=== PATIENT | male | born 1995 | race African-American/Black ===

== ENCOUNTER 2018-01-20 10:26 | Emergency (ER) | payer SELFPAY ==
--- NOTE | 2018-01-20 11:01 | ER Document Report ---
ED Medical Screen (RME) - General Chief Complaint: Chest Pain Stated Complaint: CHEST PAIN Time Seen by Provider: 01/20/18 10:53 Notes: 22-year-old male patient reports onset just before checking into work at [employer] of a tightness in his left chest with pain. Nothing makes the pain worse. He states this is a recurring problem, but the last episode was between 1 and 2 years ago and at that time was related to a panic attack after a head injury. He states now he is concerned because he is not having a panic attack, and is not been anxious. He has felt nauseous. He is tender to palpate the left anterior lateral chest wall, but states that is not the same pain that he is concerned about in his chest. I have greeted and performed a rapid initial assessment of this patient. A comprehensive ED assessment and evaluation of the patient, analysis of test results and completion of the medical decision making process will be conducted by additional ED providers. TRAVEL OUTSIDE OF THE [place] IN LAST 30 DAYS: No - Related Data Allergies/Adverse Reactions: No Known Allergies Allergy (Unverified 02/19/11 00:35) Past Medical History Pulmonary Medical History: Reports: Hx Asthma - Immunizations Immunizations up to date: Yes Hx Diphtheria, Pertussis, Tetanus Vaccination: Yes Physical Exam - Vital signs Vitals: Temp Pulse Resp BP Pulse Ox 97.3 F 68 16 142/64 H 96 01/20/18 10:31 01/20/18 10:31 01/20/18 10:31 01/20/18 10:31 01/20/18 10:31 Course - Vital Signs Vital signs: Temp Pulse Resp BP Pulse Ox 97.3 F 68 16 142/64 H 96 01/20/18 10:31 01/20/18 10:31 01/20/18 10:31 01/20/18 10:31 01/20/18 10:31 Doctor's Discharge - Discharge Referrals: HANSEL GARCIA, [Primary Care Provider] - Follow up as needed
[2018-01-20 11:33] LABS: ABSOLUTE EOSINOPHILS # (AUTO) 0.4 10^3/uL (0.0-0.6); ABSOLUTE LYMPHOCYTES (AUTO) 2.2 10^3/uL (0.5-4.7); ABSOLUTE MONOCYTES (AUTO) 0.4 10^3/uL (0.1-1.4); ABSOLUTE NEUT (AUTO) 2.9 10^3/uL (1.7-8.2); BASOPHILS % (AUTO) 0.8 % (0-2); EOSINOPHILS % (AUTO) 7.1 % (0-6); HEMOGLOBIN 16.4 g/dL (13.5-17.0); LYMPHOCYTES % (AUTO) 36.3 % (13-45); MEAN CORPUSCULAR HEMOGLOBIN 30.1 pg (27.0-33.4); MEAN CORPUSCULAR HGB CONC 34.2 g/dL (32.0-36.0); MEAN CORPUSCULAR VOLUME 88 fl (80-97); MONOCYTES % (AUTO) 7.5 % (3-13); PLATELET COUNT 242 10^3/uL (150-450); RED BLOOD COUNT 5.46 10^6/uL (4.35-5.55); RED CELL DISTRIBUTION WIDTH 12.4 % (11.5-14.0); SEGMENTED NEUTROPHILS % (AUTO) 48.3 % (42-78); TOTAL CELLS COUNTED % (AUTO) 100 %
[2018-01-20 11:54] LABS: ALANINE AMINOTRANSFERASE 69 U/L (21-72); ALBUMIN 3.9 g/dL (3.5-5.0); ALKALINE PHOSPHATASE 64 U/L (38-126); ANION GAP 9 (5-19); ASPARTATE AMINO TRANSFERASE 54 U/L (17-59); BILIRUBIN,DIRECT 0.1 mg/dL (0.0-0.4); BILIRUBIN,TOTAL 0.6 mg/dL (0.2-1.3); BLOOD UREA NITROGEN 14 mg/dL (7-20); CALCIUM 9.8 mg/dL (8.4-10.2); CARBON DIOXIDE 27 mmol/L (22-30); CHLORIDE 106 mmol/L (98-107); CREATINE KINASE 502 U/L (55-170); GLUCOSE 101 mg/dL (75-110); POTASSIUM 4.3 mmol/L (3.6-5.0); SODIUM 142.4 mmol/L (137-145); TOTAL PROTEIN 6.7 g/dL (6.3-8.2)
--- NOTE | 2018-01-20 12:23 | RADIOLOGY REPORT (SQ) ---
EXAM DESCRIPTION: CHEST 2 VIEWS COMPLETED DATE/TIME: 01/20/2018 11:46 am REASON FOR STUDY: Left-sided chest pressure and chest pain COMPARISON: None. EXAM PARAMETERS: NUMBER OF VIEWS: two views TECHNIQUE: Digital Frontal and Lateral radiographic views of the chest acquired. RADIATION DOSE: NA LIMITATIONS: none FINDINGS: LUNGS AND PLEURA: No opacities, masses or pneumothorax. No pleural effusion. MEDIASTINUM AND HILAR STRUCTURES: No masses or contour abnormalities. HEART AND VASCULAR STRUCTURES: Heart normal size. No evidence for failure. BONES: No acute findings. HARDWARE: None in the chest. OTHER: No other significant finding. IMPRESSION: 1. NO ACUTE RADIOGRAPHIC FINDING IN THE CHEST. TECHNICAL DOCUMENTATION: JOB ID: [id number] [employer]- All Rights Reserved Reading location - IP/workstation name: [email or web address]
--- NOTE | 2018-01-20 12:52 | EKG REPORT ---
SEVERITY:- NORMAL ECG - SINUS RHYTHM : Confirmed by: Papito Ramey MD 20-Jan-2018 12:51:09
--- NOTE | 2018-01-20 14:07 | ER Document Report ---
ED General - General Chief Complaint: Chest Pain Stated Complaint: CHEST PAIN Time Seen by Provider: 01/20/18 10:53 Mode of Arrival: Ambulatory Information source: Patient TRAVEL OUTSIDE OF THE [place] IN LAST 30 DAYS: No - HPI Patient complains to provider of: chest pain Onset: Other - 2-year-old male patient reports onset just before checking into work at [employer] of a tightness in his left chest with pain. Nothing makes the pain worse. He states this is a recurring problem, but the last episode was between 1 and 2 years ago and at that time was related to a panic attack after a head injury. He states now he is concerned because he is not having a panic attack, and is not been anxious. He has felt nauseous. He is tender to palpate the left anterior lateral chest wall, but states that is not the same pain that he is concerned about in his chest. No fevers no chills no cough no trauma to the chest no radiation no movement of the right side of the chest no emesis no diaphoresis no lightheadedness associated with the symptoms - Related Data Allergies/Adverse Reactions: No Known Allergies Allergy (Unverified 02/19/11 00:35) Past Medical History - General Information source: Patient - Social History Smoking Status: Current Some Day Smoker Smoking Education Provided: Yes Frequency of alcohol use: Occasional Drug Abuse: Marijuana Family History: Reviewed & Not Pertinent Patient has suicidal ideation: No Patient has homicidal ideation: No Pulmonary Medical History: Reports: Hx Asthma Renal/ Medical History: Denies: Hx Peritoneal Dialysis Past Surgical History: Reports: Hx Tonsillectomy - Immunizations Immunizations up to date: Yes Hx Diphtheria, Pertussis, Tetanus Vaccination: Yes Review of Systems - Review of Systems -: Yes All other systems reviewed and negative Physical Exam - Vital signs Vitals: Temp Pulse Resp BP Pulse Ox 97.3 F 68 16 142/64 H 96 01/20/18 10:31 01/20/18 10:31 01/20/18 10:31 01/20/18 10:31 01/20/18 10:31 - General General appearance: Appears well, Alert - HEENT Head: Normocephalic, Atraumatic Eyes: Normal Pupils: PERRL - Respiratory Respiratory status: No respiratory distress Chest status: Nontender Breath sounds: Normal Chest palpation: Normal - Cardiovascular Rhythm: Regular Heart sounds: Normal auscultation Murmur: No - Abdominal Inspection: Normal Distension: No distension Bowel sounds: Normal Tenderness: Nontender Organomegaly: No organomegaly - Back Back: Normal, Nontender - Extremities General upper extremity: Normal inspection, Nontender, Normal color, Normal ROM , Normal temperature General lower extremity: Normal inspection, Nontender, Normal color, Normal ROM , Normal temperature, Normal weight bearing. No: Ariana's sign - Neurological Neuro grossly intact: Yes Cognition: Normal Orientation: AAOx4 Caio Coma Scale Eye Opening: Spontaneous [place] Coma Scale Verbal: Oriented [place] Coma Scale Motor: Obeys Commands [place] Coma Scale Total: 15 Speech: Normal Motor strength normal: LUE, RUE, LLE, RLE Sensory: Normal - Psychological Associated symptoms: Normal affect, Normal mood Course - Re-evaluation Re-evalutation: He is a well-appearing 22-year-old man that presents from triage with labs already ordered. No significant family history of cardiac disease, atypical story, 22 years old, EKG is slightly abnormal but nondiagnostic, negative troponin. This patient's heart score is a 1. During evaluation in the emergency department this patient was placed on monitor was well-appearing throughout his time in the emergency department had no other episodes to suggest more serious or positive a chest x-ray which was also nondiagnostic. Did speak to this patient about further investigation including monitoring or other checks including a Holter monitor. He will follow-up with primary care physician or return in case of any worsening symptoms now please represent more serious underlying cause of his chest pain such as but not limited to [place]. He is PERC negative, as such did not pursue any further workup related to pulmonary embolus. No risk factors to suggest more serious issue such as dissection. Lungs are well-inflated no obvious pneumothorax. Patient was discharged with return precautions. - Vital Signs Vital signs: Temp Pulse Resp BP Pulse Ox 97.3 F 68 14 135/121 H 96 01/20/18 10:31 01/20/18 10:31 01/20/18 13:01 01/20/18 13:01 01/20/18 13:01 - Laboratory Result Diagrams: 01/20/18 11:08 01/20/18 11:08 Laboratory results interpreted by me: 01/20/18 01/20/18 11:08 11:08 Eosinophils % 7.1 H Creatine Kinase 502 H Discharge - Discharge Clinical Impression: Chest pain Qualifiers: Chest pain type: unspecified Qualified Code(s): R07.9 - Chest pain, unspecified Condition: Good Disposition: HOME, SELF-CARE Instructions: Chest Wall Pain ([facility]), Chest Pain of Unclear Cause ([facility]) Additional Instructions: Your seen today in the emergency department for the pain in your chest. He had evaluation including blood tests, chest x-ray, and EKG and monitoring. The cause for your chest pain was not identified. You need to schedule an appointment with a primary physician to help manage your care moving forward. Return for worsening chest pain, lightheadedness, dizziness numbness or weakness. Forms: Return to Work Referrals: HANSEL GARCIA, DO [ACTIVE STAFF] - Follow up as needed
[2018-01-20 14:13] VITALS: BP 135/121
== END 2018-01-20 14:18 | disposition home or self-care (01) ==
LOC: ER 10:26
DX: R07.89 Other chest pain (principal); R11.0 Nausea; F17.200 Nicotine dependence, unspecified, uncomplicated; F12.10 Cannabis abuse, uncomplicated; J45.909 Unspecified asthma, uncomplicated
CPT/HCPCS: 36415; 71046; 80053; 82550; 84484; 85025; 93005; 93010; 99285